=== PATIENT | female | born 1965 | race Caucasian/White ===

== ENCOUNTER 2016-11-10 14:17 | Emergency (ER) | payer OTHER ==
[2016-11-10 15:02] LABS: HEMOGLOBIN 14.2 gm/dl (12.3-15.3); RED BLOOD COUNT 4.41 M/UL (4.00-5.10); WHITE BLOOD COUNT 8.1 K/UL (4.5-11.0)
[2016-11-10 16:19] LABS: BUN/CREATININE RATIO 30 (0-10)
== END 2016-11-10 19:50 | disposition home or self-care (01) ==
LOC: ER1 14:17
PROVIDERS: Family Medicine
DX: J44.1 Chronic obstructive pulmonary disease with (acute) exacerbation (principal); Z88.0 Allergy status to penicillin; Z91.041 Radiographic dye allergy status; F17.210 Nicotine dependence, cigarettes, uncomplicated
CPT/HCPCS: 36415; 36600; 71020; 80053; 82550; 82553; 82803; 83874; 84484; 85025; 85379; 93005; 94664; 99285